=== PATIENT | female | born 1950 | race Hispanic/Latino ===

== ENCOUNTER 2017-11-13 13:00 | Outpatient (CLI) | payer MEDICARE, OTHER ==
--- NOTE | 2017-11-13 15:17 | Mammography Report ---
BONE DEXA:11/13/17 13:00:00 CLINICAL: Postmenopausal. COMPARISON: 11/12/15, 08/09/13 and 05/14/10 TECHNIQUE: Two site bone DEXA performed on an [employer] scanner. FINDINGS: The average BMD of the lumbar spine L1 and L4 is 1.044g/cm squared with a T-score of +0.1 and a Z-score of +1.9. The L2 and L3 levels were excluded because of endplate sclerosis. This compares to 1.078g/cm squared on the last exam and represents a -3.1% change from the previous study and a -11.3% change from baseline. The average BMD of the left hip is 0.728g/cm squared with a T-score of -1.8 and a Z-score of -0.5. This compares to 0.765g/cm squared on the last exam and represents a -4.8% change from the previous study and -18.2% change from baseline. IMPRESSION: 1. WHO classification: Normal with average fracture risk based on spine measurements. A modest decline in spine BMD compared to the last exam but a more significant decline in spine BMD compared to baseline. 2. WHO classification: Osteopenia with increased fracture risk based on left hip measurements. A moderate decline in hip BMD compared to the last exam and a marked decline compared to baseline. RECOMMENDATION: Clinical correlation and routine screening. DEFINITIONS: BMD = Bone Mineral Density T-score = BMD related to mean peak bone mass of young adult (mean expressed in Standard Deviation) Z-score = Age matched BMD expressed in SD World Health Organization (WHO) Diagnostic Criteria Normal T-score > -1 SD Osteopenia T-score between -1 and -2.4 SD Osteoporosis T-score -2.5 SD or below NOTE: BMD is not the only risk factor for fracture; also consider factors such as the patient's age, risk of falling, previous osteoporotic fracture, family history of osteoporotic fractures, current smoker, and low body weight. Z-scores are not calculated if >80 years of age.
== END 2017-11-13 13:01 | disposition home or self-care (01) ==
LOC: SPVWC 13:00
PROVIDERS: ATTEND Internal Medicine Hematology & Oncology
DX: M85.88 Other specified disorders of bone density and structure, other site (principal); C50.019 Malignant neoplasm of nipple and areola, unspecified female breast; Z79.811 Long term (current) use of aromatase inhibitors
CPT/HCPCS: 77080

== ENCOUNTER 2020-10-08 08:48 | Outpatient (CLI) | payer MEDICARE, OTHER ==
--- NOTE | 2020-10-08 10:02 | Mammography Report ---
DEXA BONE DENSITY SCAN INDICATION: OTHER SPECIFIED DISORDERS OF BONE DENSITY/STRUCTURE. COMPARISON: None available. LUMBAR SPINE (L1-L4): Bone mineral density (BMD) is 1.096 g/cm2. T-score is 0.2 (standard deviations of Young Adult mean). Z-score is 2.2 (standard deviations of Age Matched mean). LEFT FEMORAL NECK: Bone mineral density (BMD) is 0.630 g/cm2. T-score is -2.0 (standard deviations of Young Adult mean). Z-score is -0.3 (standard deviations of Age Matched mean). IMPRESSION: 1. WHO Classification: Osteopenia. Fracture Risk: Increased. Signer Name: Jorge Presley MD Signed: 10/08/2020 9:58 AM Workstation Name: [id number]
== END 2020-10-08 08:49 | disposition home or self-care (01) ==
LOC: SPVWC 08:48
PROVIDERS: ATTEND Internal Medicine Hematology & Oncology
DX: M85.89 Other specified disorders of bone density and structure, multiple sites (principal)
CPT/HCPCS: 77080